=== PATIENT | male | born 1935 | race Caucasian/White ===

== ENCOUNTER 2021-12-02 13:47 | Emergency (ER) | payer MEDICARE ==
[~2021-12-02] VITALS: Ht 175.3 cm; Wt 70.0 kg
[~2021-12-02 13:47] MED LIST: ATENOLOL25 MG PO; CARDIZEM CD240 MG PO; COUMADIN1 MG PO; COUMADIN2 MG PO; MULTI 501 PO; PRAVASTATIN40 MG PO
[2021-12-02 17:33] VITALS: BP 158/89
== END 2021-12-02 17:53 | disposition home or self-care (01) ==
LOC: ED 13:47
PROC: 0HQFXZZ Repair Right Hand Skin, External Approach (ICD-10-PCS; principal; 2021-12-02)
DX: S61.411A Laceration without foreign body of right hand, initial encounter (principal); I48.91 Unspecified atrial fibrillation; W26.9XXA Contact with unspecified sharp object(s), initial encounter; Y93.89 Activity, other specified; Y92.89 Other specified places as the place of occurrence of the external cause